=== PATIENT | female | born 1960 | race Caucasian/White ===

== ENCOUNTER → 2018-06-02 07:28 | Outpatient (REF) | payer OTHER, SELFPAY ==
[2018-06-02 13:07] LABS: HCT 42.4 % (36.0-46.0); HGB 13.7 g/dL (12.0-15.5); Mean Corp. HGB Concentration 32.3 g/dL (32.0-36.0); Mean Corpuscular Hemoglobin 29.8 pg (27.0-33.0); Mean Corpuscular Volume 92.4 fL (80-95); Mean Platelet Volume 11.6 fL (8.0-11.0); Platelet Count 211 x1000/uL (130-400); RBC 4.59 m/cumm (4.00-5.20); RBC Distribution Width 14.1 % (11.7-14.6)
[2018-06-02 13:37] LABS: ALT 20 U/L (12-78); AST 15 U/L (15-37); Alkaline Phosphatase 64 U/L (46-116); Anion Gap 5.2 mmol/L (3-11); BUN 19 mg/dL (7-18); Bilirubin, Total 0.3 mg/dL (0.2-1.0); CO2 29.8 mmol/L (21.0-32.0); CREATININE 0.77 mg/dL (0.55-1.02); Chloride 104 mmol/L (98-107); Cholesterol 179 mg/dL (50-200); Glucose 87 mg/dL (70-100); HDL Cholesterol 50 mg/dL (40-60); LDL CHOLESTEROL 119 mg/dL (<100); Potassium 4.4 mmol/L (3.5-5.1); Sodium 139 mmol/L (136-145); Total Protein 6.9 g/dL (6.4-8.2); Triglyceride 59 mg/dL (30-150)
== END ==
LOC: NCHCN 07:28
PROVIDERS: PCP Nurse Practitioner Family; Visit Provider Nurse Practitioner Family
DX: Z00.00 Encounter for general adult medical examination without abnormal findings (principal); Z13.0 Encounter for screening for diseases of the blood and blood-forming organs and certain disorders involving the immune mechanism; Z13.228 Encounter for screening for other metabolic disorders; Z13.220 Encounter for screening for lipoid disorders
CPT/HCPCS: 80053; 80061; 83721; 85027

== ENCOUNTER → 2018-06-06 11:27 | Outpatient (REF) | payer OTHER, SELFPAY ==
--- NOTE | 2018-06-06 10:00 | PAPFT_PTH ---
PATIENT: Kelly Carrillo LOC: [facility] U#:[id number] AGE/SX: 65/F ROOM: RE06/06/[address]: Grisel Culp : 1960 BED: DIS: SPEC #: [id number] RECD: 06/06/18 12:52 STATUS: ARIANNE RELudwig #: [id number] SPENCER: 06/06/18 10:[address]: Grisel Culp DEPT: [facility] Cytology RECD BY: Lydia Bolanos Tissues: 1 - CX/ENDOCX FOR PAP SMEARS Procedures: PAP THIN PREP/UVM Screening HPV DNA PROBE Comments: [id number]
[2018-06-06 13:36] LABS: T4 9.4 ug/dL (4.5-12.5); TSH 1.57 uIU/mL (0.358-3.74)
[2018-06-06 21:42] LABS: T3, Total 159 ng/dl (97-169)
== END ==
LOC: NCHCN 11:27
PROVIDERS: PCP Nurse Practitioner Family; Visit Provider Nurse Practitioner Family
DX: Z00.00 Encounter for general adult medical examination without abnormal findings (principal); R68.89 Other general symptoms and signs; Z12.4 Encounter for screening for malignant neoplasm of cervix; Z11.51 Encounter for screening for human papillomavirus (HPV)
CPT/HCPCS: 88142; 84436; 84443; 84480; 87624

== ENCOUNTER → 2018-06-21 00:17 | Outpatient (CLI) | payer OTHER, SELFPAY ==
--- NOTE | 2018-06-21 08:00 | DI.REPORT_ITS ---
SYMPTOM/DIAGNOSIS: SCREENING, Z12.31, PREVENTATIVE CARE, Z00.00 MAMMOGRAM: Mammograms were interpreted according to the usual protocol including computer analysis with CAD system, tomosynthesis and C view imaging. Comparison with prior examinations. Breast density B. No masses or microcalcifications are seen. There is nothing to suggest malignancy. IMPRESSION: Negative mammogram. Routine screening is recommended. Category I. MQSA ASSESSMENT OF FINDINGS: Negative. Category 1. Patient will receive a letter notifying them of these results. BI-RADS category B. There are scattered areas of fibroglandular density.
== END ==
PROVIDERS: PCP Nurse Practitioner Family; Visit Provider Nurse Practitioner Family
DX: Z12.31 Encounter for screening mammogram for malignant neoplasm of breast (principal)
CPT/HCPCS: 77063; 77067

== ENCOUNTER 2019-06-15 15:14 | Outpatient (REF) | payer OTHER, SELFPAY ==
[2019-06-15 18:38] LABS: ALT 25 U/L (12-78); AST 12 U/L (15-37); Albumin 2.7 g/dL (3.4-5.0); Alkaline Phosphatase 57 U/L (46-116); Anion Gap 10.2 mmol/L (3-11); BUN 20 mg/dL (7-18); Bilirubin, Total 0.2 mg/dL (0.2-1.0); CO2 27.8 mmol/L (21.0-32.0); CREATININE 0.75 mg/dL (0.55-1.02); Chloride 106 mmol/L (98-107); Glucose 97 mg/dL (70-100); Sodium 144 mmol/L (136-145); Total Protein 7.1 g/dL (6.4-8.2)
[2019-06-15 18:45] LABS: Abs Immature Grans 0.01 k/cumm (0.0-0.09); Absolute Basophil Count 0.04 k/cumm (0.0-0.2); Absolute Eosinophil Count 0.08 k/cumm (0.0-0.7); Absolute Lymphocyte Count 2.41 k/cumm (1.2-3.4); Absolute Monocyte Count 0.51 k/cumm (0.11-0.7); Absolute Neutrophil Count 4.48 k/cumm (1.2-6.7); Basophils % 0.5; Eosinophils % 1.1; HCT 42.1 % (36.0-46.0); Immature Grans % 0.1; Mean Corp. HGB Concentration 33.3 g/dL (32.0-36.0); Mean Corpuscular Volume 90.3 fL (80-95); Mean Platelet Volume 10.8 fL (8.0-11.0); Monocytes % 6.8; Neutrophils % 59.5; Platelet Count 223 x1000/uL (130-400); RBC 4.66 m/cumm (4.00-5.20); RBC Distribution Width 14.1 % (11.7-14.6); White Blood Cell Count 7.53 k/cumm (4.4-10.8)
== END 2019-06-15 15:34 ==
LOC: NCHCN 15:14
PROVIDERS: PCP Nurse Practitioner Family; Visit Provider Nurse Practitioner Family
DX: Z00.00 Encounter for general adult medical examination without abnormal findings (principal); Z13.228 Encounter for screening for other metabolic disorders; Z13.0 Encounter for screening for diseases of the blood and blood-forming organs and certain disorders involving the immune mechanism
CPT/HCPCS: 80053; 85025

== ENCOUNTER 2019-06-17 16:47 | Emergency (ER) | payer OTHER, SELFPAY ==
[2019-06-17 16:56] VITALS: BP 146/94; PULSE 85; RESP 16; TEMP 36.7
--- NOTE | 2019-06-17 18:32 | W.ED.GENAD ---
Discharge Plan Disposition Patient Disposition: HOME Condition: Stable Discharge Details Chief Complaint: EyeProblem Clinical Impression: Abrasion of sclera Primary Care Provider: Lionel Ceballos ED Provider: Veronica Ruiz Home Meds and New Rx's Prescriptions: New gentamicin 0.3 % drops 2 drp OP Q4H 5 Days RF: 0 Continued loratadine 10 mg capsule 10 mg PO HS PRN RF: 0 loratadine 10 MG tablet,disintegrating 10 mg PO DAILY RF: 0 pregabalin [Lyrica] 20 MG/1 ML solution 75 mg PO BID RF: 0 celecoxib [Celebrex] 100 MG capsule 200 mg PO DAILY RF: 0 estradiol [Estrace] 42.5 GM cream 42.5 gm VG twice weekly Qty: 1 RF: 2 omeprazole [Prilosec] 20 MG capsule,delayed release(DR/EC) 1 cap PO DAILY RF: 0 omega-3 fatty acids-fish oil [Fish Oil] 1 EACH capsule 1 ea PO DAILY RF: 0 Discharge Instructions Instructions: Corneal Abrasion (ED) Additional Instructions: Alternate Tylenol and Motrin as needed and directed for pain. Use the eye antibiotic as directed. Call your eye doctor or [facility] eye care to schedule follow-up appointment for reevaluation in the next week. Return to the emergency department if you develop any worsening or concern symptoms for Discharge Data Discharge Date/Time-TO BE ENTERED AT DEPARTURE: 06/17/19 19:19 Discharge Physician: Veronica Ruiz Medical Decision Making 58-year-old female who presents with left eye injury after she poked herself in her left eye while pushing her hair to her face prior to arrival. Tetanus up-to-date. Denies blurry vision. She is a contact lens wearer. There is a subconjunctival hemorrhage noted at 3:00. Upon fluorescein staining there is uptake noted at 3:00 just above the subconjunctival hemorrhage. With eyelid eversion there is no foreign body noted. Remainder of eye exam within normal limits. Normal EOMI, PERRLA. Patient had relief with tetracaine here. She was given a bottle of gentamicin here for home. She was advised to follow-up with her eye doctor or [facility] eye care for reevaluation and to return here with any concerns. HPI General Mode of arrival: ambulatory. Date/Time Provider Initiated Documentation: 06/17/19 17:14. Limitations to Documentation: no limitations. Information obtained by: patient. HPI Narrative: Patient is a 58-year-old female presents with left eye injury after she poked herself in her left eye while moving here out of her face. She admitted to immediate pain. She denies any blurry vision or foreign body sensation. She states she had gel in her hands at the time but denies any known foreign body. She states she wears contacts. She states her tetanus is up-to-date Related Data Home Medications Medication Instructions Recorded Confirmed loratadine 10 mg PO DAILY tab-cap 10/10/15 08/23/18 pregabalin [Lyrica] 75 mg PO BID ml 10/10/15 08/23/18 omeprazole [Prilosec] 1 cap PO DAILY 12/01/15 08/23/18 celecoxib [Celebrex] 200 mg PO DAILY tab-cap 09/27/17 08/23/18 omega-3 fatty acids-fish oil [Fish 1 ea PO DAILY 10/21/17 08/23/18 Oil] estradiol [Estrace] 42.5 gm VG twice weekly #1 tube 06/22/18 08/23/18 loratadine 10 mg capsule 10 mg PO HS PRN cap 08/23/18 08/23/18 gentamicin 2 drp OP Q4H 5 Days ml 06/17/19 Previous Rx's Medication Instructions Recorded estradiol [Estrace] 42.5 gm VG twice weekly #1 tube 06/22/18 gentamicin 2 drp OP Q4H 5 Days ml 06/17/19 Allergies Allergy/AdvReac Type Severity Reaction Status Date / Time tetracycline Allergy Intermediate chills, Unverified 08/23/18 08:16 hives gabapentin AdvReac Mild Nausea Unverified 08/23/18 08:16 ibuprofen AdvReac internal Unverified 08/23/18 08:16 bleeding General Stated Complaint: EyeProblem MANAN: 4 Review of Systems Review of Systems All systems reviewed & are unremarkable except as noted in HPI and below Constitutional Reports as per HPI, Denies chills and Denies fever(s) Eyes Denies blurry vision ENT Denies dizziness, Denies sore throat and Denies throat swelling Cardiovascular Denies chest pain and Denies dyspnea Respiratory Denies cough and Denies dyspnea Gastrointestinal Denies abdominal pain, Denies diarrhea and Denies vomiting Genitourinary Denies hematuria and Denies dysuria Musculoskeletal Denies back pain and Denies numbness Integumentary/Breasts Denies lesions and Denies rash Neurologic Denies dizziness, Denies focal weakness and Denies numbness Allergic/Immunologic Denies throat swelling [facility] Medical History Allergic rhinitis Hypoglycemia Osteoarthritis Radiculopathy of lumbosacral region Sinusitis Surgical History Arthroplasty of knee Family History Other Colon cancer Social History Smoking/Tobacco Use Status: Never Alcohol Intake: never Drug use: Never Substance use type: does not use Do you feel safe at home: Yes Do you feel safe in your relationship?: Yes Exam Const General: cooperative, healthy appearing and no acute distress HENMT Head: normal to inspection Mouth: oral mucosae normal Eyes General: appearance normal, both eyes and all related structures Eyes/upper lids images: 1. Subconjunctival hemorrhage at 3 o'clock. 2. Scleral abrasion noted at 3:00 just above subconjunctival hemorrhage Neck Neck: normal visual inspection Resp Effort & Inspection: normal respiratory effort and able to speak in complete sentences Cardio Rate: regular rate Skin General skin exam: no rashes or lesions noted Neuro General: alert, awake and oriented x3 Motor: muscle tone normal throughout Extrem General: normal to inspection and full ROM Psych Appearance: grossly normal Affect: normal affect Course Vital Signs Temperature 98.1 F 06/17/19 16:56 Pulse 85 06/17/19 16:56 Respiratory Rate 16 06/17/19 16:56 Blood Pressure 146/94 H 06/17/19 16:56 Temperature 98.1 F 06/17/19 16:56 Pulse 85 06/17/19 16:56 Respiratory Rate 16 06/17/19 16:56 Respiratory Effort Non-Labored 06/17/19 16:56 Blood Pressure 146/94 H 06/17/19 16:56 Blood Pressure Position Supine 06/17/19 16:56 Oxygen Delivery Method Room Air 06/17/19 16:56 Oxygen Flow Rate 0 06/17/19 16:56
== END 2019-06-17 19:19 | disposition home or self-care (01) ==
PROVIDERS: Emergency Provider Physician Assistant; PCP Nurse Practitioner Family
DX: S05.02XA Injury of conjunctiva and corneal abrasion without foreign body, left eye, initial encounter (principal); H11.32 Conjunctival hemorrhage, left eye; W22.8XXA Striking against or struck by other objects, initial encounter
CPT/HCPCS: 99283

== ENCOUNTER 2019-07-23 00:25 | Outpatient (CLI) | payer OTHER, SELFPAY ==
--- NOTE | 2019-07-23 17:43 | DI.MAMMO_ITS ---
EXAM: MG MAMMO SCREENING CLINICAL HISTORY: [facility],Z00.00,SCREENING TECHNIQUE: Mammograms were interpreted according to the usual protocol including computer analysis w [employer] CAD system, tomosynthesis and C-view imaging. COMPARISON: Comparison is made with prior studies. FINDINGS: The breast tissue is of moderate radiodensity. There is no dominant mass. There are no suspicious darnell cifications and there has been no significant interval change when compared with prior studies. IMPRESSION: Category 1 examination with no evidence of malignancy. BI-RADS category B. BI-RADS Cat 1 - Negative. Breast Density - Category B - Scattered areas of fibroglandular density.
== END 2019-07-23 00:45 ==
PROVIDERS: PCP Nurse Practitioner Family; Visit Provider Nurse Practitioner Family
DX: Z00.00 Encounter for general adult medical examination without abnormal findings (principal); Z12.31 Encounter for screening mammogram for malignant neoplasm of breast
CPT/HCPCS: 77063; 77067

== ENCOUNTER 2019-08-24 01:00 | Outpatient (CLI) | payer OTHER, SELFPAY ==
--- NOTE | 2019-08-24 07:51 | DI.US_ITS ---
EXAM: US PELVIS TRANSVAGINAL CLINICAL HISTORY: Postmenopausal bleeding,N95.0 TECHNIQUE: Ultrasound performed using standard protocol. COMPARISON: ABDOMEN ULTRASOUND (P) from 10/03/2013 FINDINGS: Pelvic ultrasound was performed transabdominally and transvaginally. Please see the accompanying jeovanny a sheet for measurements of the pelvic structures. Limited scanning of the kidneys is unremarkable. No free fluid identified in the pelvis. There is a probable 16 millimeter in diameter anterior fibroid at the mid body of the uterus. There is probable 7 millimeter in diameter fibroid in the posterior midbody. The endometrial stripe measure s about 6 millimeters in thickness and appears heterogeneous. The ovaries have a normal appearance. IMPRESSION: Presumed uterine fibroids. Heterogeneous, thickened endometrial stripe in a postmenopausal patient. The findings are nonspecific but neoplastic disease is not excluded and endometrial biopsy should be considered.
== END 2019-08-24 01:20 ==
PROVIDERS: PCP Nurse Practitioner Family; Visit Provider Obstetrics & Gynecology
DX: N95.0 Postmenopausal bleeding (principal); D25.9 Leiomyoma of uterus, unspecified; R93.89 Abnormal findings on diagnostic imaging of other specified body structures
CPT/HCPCS: 76830; 76856

== ENCOUNTER 2019-10-02 08:02 | Outpatient (CLI) | payer OTHER, SELFPAY ==
[2019-10-02 09:09] LABS: HCT 40.6 % (36.0-46.0); HGB 13.5 g/dL (12.0-15.5); Mean Corp. HGB Concentration 33.3 g/dL (32.0-36.0); Mean Corpuscular Hemoglobin 30.2 pg (27.0-33.0); Mean Corpuscular Volume 90.8 fL (80-95); Mean Platelet Volume 9.8 fL (8.0-11.0); Platelet Count 244 x1000/uL (130-400); RBC 4.47 m/cumm (4.00-5.20); RBC Distribution Width 14.9 % (11.7-14.6); White Blood Cell Count 5.57 k/cumm (4.4-10.8)
== END 2019-10-02 08:22 ==
PROVIDERS: PCP Nurse Practitioner Family; Visit Provider Obstetrics & Gynecology
DX: N81.2 Incomplete uterovaginal prolapse (principal); Z01.818 Encounter for other preprocedural examination; Z01.812 Encounter for preprocedural laboratory examination
CPT/HCPCS: 36415; 85027; 86850; 86900; 86901

== ENCOUNTER 2019-10-03 10:45 | Observation (INO) | payer OTHER, SELFPAY ==
[2019-10-03] VITALS (21 sets, daily range): BP systolic 99–148; BP diastolic 64–98; PULSE 53–83; RESP 14–22; TEMP 36.2–36.7; O2SAT 97–100
[2019-10-03] MEDS: Lactated Ringers 1,000 ML 125 ML IV ×3 (07:15→20:47)
[2019-10-03] MEDS: ceFAZolin 2 GM/50 ML BAG IVPB (08:17)
[2019-10-03] MEDS: Normal Saline 20 ML VIAL (08:28)
[2019-10-03] MEDS: Vasopressin 20 UNITS/ML VIAL (08:28)
--- NOTE | 2019-10-03 08:50 | UTER_PTH ---
PATIENT: Kelly Carrillo LOC: [facility] U#:[id number] AGE/SX: 59/F ROOM: OBS.306 RE10/03/[address]: Horacio Mackenzie MD : 1960 BED: A DIS: 10/04/2019 SPEC #: [id number] RECD: 10/03/19 12:16 STATUS: ARIANNE REQ #: [id number] SPENCER: 10/03/19 08:[address]: Horacio Mackenzie DEPT: Surgical Specimen RECD BY: Lydia Bolanos ENTERED: 10/03/19 12:17 SP TYPE: UTER OTHR DR: Lionel Ceballos Tissues: 1 - UTERUS PROLAPSE Procedures: GROSS AND MICRO LEVEL 4 Comments: [id number]
[2019-10-03] MEDS: ACETAMINOPHEN 1,000 MG/100 ML BTL 400 MG IVPB (13:39)
[2019-10-03] MEDS: oxyCODONE 5 MG TAB PO (13:42)
[2019-10-03] MEDS: Ketorolac 30 MG/ML VIAL IVP ×2 (17:44→23:54)
--- NOTE | 2019-10-03 18:23 | ROE_ITS ---
Date of service: 10/03/19 Time of Service: 18:23 Operative Note Operative Note DATE OF PROCEDURE: 10/03/19 PRE-OP DIAGNOSIS: Uterovaginal prolapse with cystocele and rectocele. POST-OP DIAGNOSIS: other Uterovaginal prolapse with cystocele, rectocele, and enterocele PROCEDURE: 1. Total vaginal hysterectomy 2. Bilateral salpingo-oophorectomy 3. Anterior and posterior colporrhaphy 4. Enterocele repair with modified Walton's culdoplasty 5. Cystoscopy SURGEON: Horacio Mackenzie ASSISTING SURGEON: Amairani Ward ANESTHESIA: GETA ESTIMATED BLOOD LOSS: 50 PATHOLOGY: other (Uterus tubes and ovaries) COMPLICATIONS: None Patient was transported to: PACU Patient's condition: stable Findings: 1. Grade 2 uterine prolapse 2. Grade 2 cystocele and rectocele 3. Moderate size enterocele. 4. Normal uterus tubes and ovaries 5. Normal postoperative cystoscopy Procedure Description: The patient was taken to the operating room and after adequate general anesthesia was obtained the patient was placed in lithotomy position. The patient was prepped and draped in usual sterile manner. A Rivera catheter was placed and bladder draining clear urine. A weighted speculum was placed in the vagina with good visualization of the cervix. The paracervical tissues were infiltrated with vasopressin solution. A circumferential incision was made with a #10 scalpel at the cervicovaginal junction. The anterior and posterior planes were developed with both blunt and sharp dissection. The cul-de-sac was entered sharply and a long-billed weighted speculum was placed reflecting the rectum posteriorly. Dissection was carried in the anterior plane to the anterior cul-de-sac and the bladder was reflected anteriorly with a right ankle retractor. The uterosacral ligaments were crossclamped bilaterally with Zeppelin clamps transected with Mejia scissors and suture ligated with a Tish stitch of 0 Vicryl. Suture tags were held. 2 additional pedicles were taken to the utero-ovarian ligament each suture-ligated with a transfixed suture of 0 Vicryl. The uterus was removed from the abdomen. The right ovary and fallopian tube were identified and grasped with a [place] clamp. The infundibulopelvic ligament was crossclamped with a Zeppelin clamp, transected with Mejia scissors, and suture ligated with a transfix suture of 0 Vicryl. A similar procedure was carried out on the opposite side. There was a moderate size enterocele defect that was noted. The enterocele sac was excised with Mejia scissors. A modified Walton's culdoplasty was performed incorporating both uterosacral ligaments and posterior peritoneum. The uterosacral ligaments were incorporated into the vaginal angles with use of a free needle and the previously placed sutures of 0 Vicryl which were held. The median defect in the vaginal cuff was closed with interrupted vertical mattress sutures of 0 Vicryl. Again excellent hemostasis was noted. The cystocele defect was identified and the vaginal mucosa overlying the defect was infiltrated with vasopressin solution. A linear incision was made overlying the defect and dissection was carried from the vaginal cuff to the urethral meatus. Blunt and sharp dissection was used to isolate the defect from the overlying vaginal mucosa. A pursestring suture of 2-0 Vicryl was used to reduce the defect. The pubocervical fascia was identified and interrupted sutures of 0 Vicryl were used to close and reduce the defect. The vaginal mucosa was trimmed and closed with interrupted sutures of 2-0 Vicryl. Excellent hemostasis was noted. Attention was turned to the posterior vaginal wall. The vaginal mucosa at the introitus was grasped with 2 Allis forceps. The vaginal mucosa overlying the rectocele defect was infiltrated with vasopressin solution. A V-incision was made over the perineum and dissection was carried along the midline overlying the defect to within several centimeters of the vaginal cuff. Dissection was carried laterally in either direction both bluntly and sharply with Metzenbaum scissors. The defect was able to be reduced and isolated from the vaginal mucosa. The endopelvic fascia was identified and initially a pursestring suture was used to reduce the rectocele defect. Interrupted sutures of 0 Vicryl were used to reapproximate the fascia and reduce the defect. The vaginal mucosa was trimmed and closed with interrupted sutures of 0 Vicryl. The bulbocavernosus muscles were reapproximated in the midline with 0 Vicryl suture. Excellent hemostasis was noted. 5 mL's of indigocarmine was given intravenously. The Rivera catheter was removed and a 30 degree 5 mm cystoscope was inserted. There was strong reflux of indigocarmine from both UOs. The bladder wall was inspected and was noted to be intact. Postoperative cystoscopy was normal. The cystoscope was removed and Rivera catheter replaced. The procedure was concluded at this point. Sponge, lap, needle and instrument counts were correct at the conclusion of the procedure. Vaginal packing soaked with Premarin cream was placed in the vagina. The patient was extubated and transferred to PACU in stable condition.
[2019-10-03] MEDS: Docusate Sodium 100 MG CAP PO (19:04)
--- NOTE | 2019-10-03 19:29 | NUR.NOTE ---
Attempted to get out of bed to walk. Patient became dizzy when sitting and more dizzy when she stood. Returned to bed, will try again later.
[2019-10-03] MEDS: Pregabalin 100 MG CAP PO (19:50)
[2019-10-04 00:05] VITALS: BP 112/73; PULSE 61; TEMP 36.5
[2019-10-04] MEDS: Lactated Ringers 1,000 ML 125 ML IV (03:57)
[2019-10-04 04:01] VITALS: BP 115/75; PULSE 68; TEMP 36.8
[2019-10-04] MEDS: Ketorolac 30 MG/ML VIAL IVP (05:58)
--- NOTE | 2019-10-04 06:22 | NUR.NOTE ---
Walked to the bathroom in her room without dizziness with no assistance.Nursing Note:
[2019-10-04 07:45] VITALS: BP 124/75; PULSE 76; RESP 16; TEMP 36.8
[2019-10-04] MEDS: Pregabalin 100 MG CAP PO (08:39)
[2019-10-04] MEDS: Docusate Sodium 100 MG CAP PO (08:41)
[2019-10-04] MEDS: Patch Removal TD (13:34)
== END 2019-10-04 14:00 | disposition home or self-care (01) ==
LOC: OBS 16:16
PROVIDERS: Admitting Provider Obstetrics & Gynecology; PCP Nurse Practitioner Family; Visit Provider Obstetrics & Gynecology
PROC: 0UT97ZZ Resection of Uterus, Via Natural or Artificial Opening (ICD-10-PCS; CPT 58260; principal; 2019-10-03 07:30)
PROC: 0UT97ZZ Resection of Uterus, Via Natural or Artificial Opening (ICD-10-PCS; CPT 57260; 2019-10-03 07:30)
DX: N81.2 Incomplete uterovaginal prolapse (principal); D25.2 Subserosal leiomyoma of uterus; N72 Inflammatory disease of cervix uteri; N83.292 Other ovarian cyst, left side; N83.291 Other ovarian cyst, right side; K21.9 Gastro-esophageal reflux disease without esophagitis
CPT/HCPCS: 58263; 57265; 88305; J0131; J0690; J1100; J1885; J2250; J2405; J3010; J3490

== ENCOUNTER 2020-06-20 09:24 | Outpatient (REF) | payer OTHER, SELFPAY ==
[2020-06-20 23:25] LABS: BUN 14 mg/dL (7-18); CREATININE 0.69 mg/dL (0.55-1.02); Calcium 9.3 mg/dL (8.5-10.1); Chloride 106 mmol/L (98-107); Glucose 93 mg/dL (74-106); Potassium 4.5 mmol/L (3.5-5.1); Sodium 142 mmol/L (136-145)
== END 2020-06-20 09:44 ==
LOC: NCHCN 09:24
PROVIDERS: PCP Nurse Practitioner Family; Visit Provider Nurse Practitioner Family
DX: M46.92 Unspecified inflammatory spondylopathy, cervical region (principal)
CPT/HCPCS: 80048

== ENCOUNTER 2022-09-22 13:08 | Outpatient (REF) | payer OTHER, SELFPAY ==
[2022-09-22 15:30] LABS: ALT 26 U/L (14-59); AST 21 U/L (15-37); Alkaline Phosphatase 56 U/L (46-116); Anion Gap 6.6 mmol/L (3-11); BUN 16 mg/dL (7-18); Bilirubin, Total 0.3 mg/dL (0.2-1.0); CO2 29.4 mmol/L (21.0-32.0); CREATININE 0.7 mg/dL (0.55-1.02); Calcium 9.4 mg/dL (8.5-10.1); Calculated LDL 123 mg/dL (<100); Chloride 105 mmol/L (98-107); Cholesterol 200 mg/dL (<200); Estimated GFR 99.57 (mL/min/1.73m2); Glucose 97 mg/dL (74-106); HDL Cholesterol 70 mg/dL (40-60); Potassium 4.2 mmol/L (3.5-5.1); Sodium 141 mmol/L (136-145); Total Protein 7.1 g/dL (6.4-8.2); Triglyceride 36 mg/dL (<150)
[2022-09-24 15:08] LABS: Tissue Transglutaminase Ab IgA <1.2 U/mL
== END 2022-09-22 13:09 | disposition home or self-care (01) ==
LOC: NCHCN 13:08
PROVIDERS: Visit Provider Physician Assistant
DX: Z00.00 Encounter for general adult medical examination without abnormal findings (principal); R11.0 Nausea; Z13.220 Encounter for screening for lipoid disorders; Z13.228 Encounter for screening for other metabolic disorders
CPT/HCPCS: 80053; 80061; 83516

== ENCOUNTER → 2024-05-28 01:02 | Outpatient (CLI) | payer OTHER, SELFPAY ==
--- NOTE | 2024-05-28 | DI.MAMMO_ITS ---
Exam(s) MAMMO SCREENING EXAM: MAMMO SCREENING CLINICAL HISTORY: SCREENING, Z12.39 TECHNIQUE: Mammograms were interpreted according to the usual protocol including computer analysis w [employer] CAD system, tomosynthesis and C-view imaging. COMPARISON: 2018 and 2019 FINDINGS: The breasts are composed of scattered fibroglandular densities, Breast Density category B. No suspicious masses or suspicious microcalcifications are seen. No skin thickening or abnormal axillary lymph nodes are seen. There has been no significant change from prior exams. IMPRESSION: BI-RADS Category 1, Negative mammogram Yearly screening mammography is recommended. Breast Density - Category B, scattered fibroglandular densities. A negative radiographic report should not delay biopsy if a dominant or clinically suspicious mass is present. Up to ten percent of cancers are not identified on mammography. A negative report may reinforce clinical impression. Adenosis and dense breasts may obscure an underlying neoplasm. False positive reports average 6 to 10%. Patient will receive a letter notifying them of these results.
--- NOTE | 2024-05-28 15:45 | DI.RAD_ITS ---
Exam(s) XR ANKLE RT COMPLETE EXAM: XR ANKLE RT COMPLETE CLINICAL HISTORY: RT ANKLE PAIN, M25.571,CHRONIC. TECHNIQUE: 2D digital imaging was performed of the right ankle. Three images were obtained. AP, la teral and oblique views were obtained. COMPARISON: No exams were available for comparison FINDINGS: BONES: No acute fracture is present. No bony destructive lesion is seen. There is a small plantar ca lcaneal spur. JOINTS: The ankle mortise is normally aligned. SOFT TISSUE: Normal. IMPRESSION: Calcaneal spur. DATA REPOSITORY: RADIATION DOSE DELIVERED:
== END ==
PROVIDERS: Visit Provider Physician Assistant
DX: M25.571 Pain in right ankle and joints of right foot (principal); M77.31 Calcaneal spur, right foot
CPT/HCPCS: 77063; 77067; 73610

== ENCOUNTER 2025-09-25 09:52 | Outpatient (REF) | payer OTHER, SELFPAY ==
[2025-09-25 18:33] LABS: ALT 19 U/L (10-49); AST 20 U/L (<34); Albumin 4.3 g/dL (3.2-5.0); Alkaline Phosphatase 59 U/L (46-116); Anion Gap 5.3 mmol/L (3-11); BUN 17 mg/dL (9-23); Bilirubin, Total 0.40 mg/dL (0.2-1.2); CO2 26.7 mmol/L (20.0-31.0); Calcium 9.7 mg/dL (8.3-10.6); Chloride 111 mmol/L (98-107); Cholesterol 185 mg/dL (<200); Glucose 90 mg/dL (74-106); HDL Cholesterol 59 mg/dL (>40); Potassium 4.1 mmol/L (3.5-5.1); Sodium 143 mmol/L (136-145); Total Protein 6.6 g/dL (5.7-8.2)
== END 2025-09-25 09:53 | disposition home or self-care (01) ==
LOC: NCHCN 09:52
PROVIDERS: PCP Physician Assistant; Visit Provider Physician Assistant
DX: E78.5 Hyperlipidemia, unspecified (principal)
CPT/HCPCS: 80053; 80061